=== PATIENT | male | born 1960 | race Caucasian/White ===

== ENCOUNTER → 2016-10-20 | Outpatient (CLI) | payer MEDICAID ==
[~2016-10-20] MED LIST: ALBU18HF INH; ALBU2.5V NPPB; ALBU90AE INH; ALLO100T30 PO; ALPR0.25 PO; BUME1TAB21 PO; CIPR500T3 PO; CITA20TA9 PO; CLIN300C93 PO; DIPH50CA PO; FAMO20TA7 PO; FERR325T10 PO; FURO40TA6 PO; FURO80TA3 PO; FURO80TA77 PO; Folic Acid PO; GABA300C PO; GABA800T PO; GLIP10TA3; GLIP5TAB10 PO; LACT1CAP24 PO; LACT20SO13 PO; LEVO50TA PO; LIDOCAINE 1%, 20ML ONE; LISI-170 PO; MAGN400T26 PO; METF500T27 PO; METF500T3 PO; MULT-750 PO; NEOM10DR37 EACH EAR; Nicotine TD; OMEP20TA62 PO; OXYC20TA2 PO; OXYC5TAB3 PO; POTA10CA PO; POTA20PA8 PO; POTA20TA14 PO; RIFA550T PO; SODIUM BICARBONATE 4.2%, 5ML ONE; SPIR50TA PO; SULF1TAB24 PO; THIA100T6 PO; TRAZ100T15 PO; TRAZ150T68; ZOLP-413 PO
== END | disposition home or self-care (01) ==
LOC: RAD 12:12
PROVIDERS: ATTEND Internal Medicine
DX: K70.31 Alcoholic cirrhosis of liver with ascites (principal); R60.1 Generalized edema
CPT/HCPCS: 49083; J3490